=== PATIENT | male | born 1955 | race Two or more races ===

== ENCOUNTER 2017-11-06 05:23 | Emergency (ER) | payer OTHER ==
[~2017-11-06] VITALS: Ht 162.6 cm; Wt 77.1 kg
[2017-11-06] MEDS ORDERED: SODIUM CHLORIDE 0.9% 2,000 ML IV ONE (10:00)
[2017-11-06] MEDS ORDERED: LIDOCAINE 1% (LOCAL ANESTH.) PF 5ml SDV ONE ×3 (11:09→11:38)
[2017-11-06] MEDS ORDERED: MORPHINE SULFATE 8mg/ml INJ SDV IV ONE (11:15)
[2017-11-06 13:26] VITALS: BP 100/58
== END 2017-11-06 13:46 | disposition short-term general hospital (02) ==
LOC: EDBD 05:23 → ER 05:23
DX: S22.43XA Multiple fractures of ribs, bilateral, initial encounter for closed fracture (principal); S61.412A Laceration without foreign body of left hand, initial encounter; S81.012A Laceration without foreign body, left knee, initial encounter; W26.8XXA Contact with other sharp object(s), not elsewhere classified, initial encounter; Y93.89 Activity, other specified; Y92.89 Other specified places as the place of occurrence of the external cause; Y99.8 Other external cause status
CPT/HCPCS: 12006; 71250; 73562; 73610; 96361; 96374; 99291; J2270